=== PATIENT | male | born 1970 | race Caucasian/White ===

== ENCOUNTER 2024-03-07 17:30 | Outpatient (RCR) | payer MEDICAID, SELFPAY ==
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
--- NOTE | 2024-03-07 18:02 | HP.PTDCSUM ---
Discharge Summary D/C summary: It has been my pleasure to treat JEFFREY BELLA referred by Dr. Ubaldo Sage DO, with the diagnosis of L spondylolysis, L trochanteric bursitis, L IT band syndrome for a total of 10 visit(s). Discharge Date: 03/07/24 Please see the following information for a summary of their discharge status. Subjective Subjective: Pt reports that the water therapy went well and he felt good when he did it. He is going to sign up for a membership tonight. The last 2 days he has been really stiff. He felt really good this past weekend. He is walking up alternating feet now instead of just R leg first. His movement is just better as far as movement with less limping. Pain L hip pain: Pain Intensity (Out of 10): 6 L IT band pain: Pain Intensity (Out of 10): 6 Overall Improvement % Improvement: 20 Objective Objective/Function: Gait: walks still with decrease stance time on the L LE Trunk AROM: flexion 85%, ext 50%, Rot B 75%, SB B 75% Pt is able to heel raise but increase L hip pain with toe raises. LAQ B with no pain He is not able to cross his L leg over his R to test his piriformis due to increase pain Sit to stand with no arms he is able to get up on first attempt but painful. LE MMT: R hip flex 14.4 and L 11.5 R knee ext 23.4 and L 23 R knee flex 15/4 and L 15.3 Goals Goal 1:: I HEP Goal Progress: Goal Met Plan Plan: DC PT to noe AT program D/C Information Discharge Comments: DC PT to noe AT program d/c sentence: If there are questions or concerns regarding this patient's physical therapy, please feel free to call me at [phone]. Thank you for the referral of this patient. Sincerely, Raina Servin, MPT Balance/Gait/Functional tests Balance/Special Test Scores Lower Extremity Functional Score: 36 Improvement % Improvement: 20
== END 2024-03-07 19:00 | disposition home or self-care (01) ==
LOC: PT 17:30
PROVIDERS: Referring Provider Orthopaedic Surgery; Visit Provider Orthopaedic Surgery
DX: M43.06 Spondylolysis, lumbar region (principal); M70.62 Trochanteric bursitis, left hip; M76.32 Iliotibial band syndrome, left leg
CPT/HCPCS: 97113; 97161; 97530